=== PATIENT | female | born 1955 | race African-American/Black ===

== ENCOUNTER 2021-02-21 12:01 | Emergency (ER) | payer OTHER, SELFPAY ==
--- NOTE | ~2021-02-21 | XR_ITS ---
EXAMINATION: XR chest 2V DATE: 02/21/2021 12:28 INDICATION: Shortness of breath and dizziness TECHNIQUE: PA and lateral views of the chest are obtained. COMPARISON: None available FINDINGS: The lungs are free of acute opacities. There is no pleural effusion or pneumothorax. The ca rdiomediastinal silhouette is normal. There is moderate thoracic spondylosis. A single lead cardiac p acemaker is implanted in the left lateral chest wall. Its lead is present in the midline cutaneous ti ssues of the chest. IMPRESSION: 1. No acute cardiopulmonary abnormality. Reviewed, dictated and finalized at location A.
[2021-02-21 12:09] VITALS: BP 141/83; PULSE 80; RESP 18; TEMP 37.4; O2SAT 100
--- NOTE | 2021-02-21 12:13 | ECG_ITS ---
Measurements Intervals [place] Rate: 90 P: 35 NC: 155 QRS: -42 QRSD: 102 T: 90 QT: 360 QTc: 441 Interpretive Statements SINUS RHYTHM VENTRICULAR PREMATURE COMPLEX POSSIBLE LEFT ATRIAL ENLARGEMENT LEFT AXIS DEVIATION DELAYED PRECORDIAL R/S TRANSITION LEFT VENTRICULAR HYPERTROPHY WITH ST-T CHANGE BASELINE ARTIFACT- I, II, III, AVR, AVL ,AVF, V3, V5 BORDERLINE ECG Electronically Signed On 02-21-2021 13:00:02 CDT by Michael Madera D.O.
[2021-02-21 12:30] VITALS: BP 150/89; PULSE 92; RESP 20; O2SAT 100
[2021-02-21 12:34] VITALS: PULSE 92
[2021-02-21 12:34] LABS: Basophils Percent Auto 0.3 % (0.2-1.2); Eosinophils Percent Auto 0.5 % (0-4.4); Hematocrit 37.8 % (37.0-47.0); Hemoglobin 12.2 g/dL (12.0-15.0); Immature Granulocyte Absolute 0.02 K/mm3 (0.00-0.031); Immature Granulocyte Percent A 0.3 % (0-0.5); Lymphocytes Absolute Auto 2.58 K/mm3 (0.9-3.2); Mean Corpuscular HGB Conc 32.3 g/dl (32-36); Mean Corpuscular Hemoglobin 31.3 pg (26-34); Mean Corpuscular Volume 96.9 fl (80-100); Mean Platelet Volume 8.6 fl (7.4-10.4); Monocytes Absolute Auto 0.9 K/mm3 (0.1-0.6); Monocytes Percent Auto 11.7 % (2.6-8.5); Neutrophils Absolute Auto 3.9 K/mm3 (1.3-6.7); Neutrophils Percent Auto 52.2 % (45.5-73.1); Platelet Count Result 406 k/mm3 (150-375); Red Cell Distribution Width 14.7 % (11.5-14.5); White Blood Count 7.4 K/mm3 (4.5-10.0)
[2021-02-21 12:39] LABS: Anion Gap 10 mmol/L (8-16); Blood Urea Nitrogen 9 mg/dL (7-17); Calcium 9.6 mg/dL (8.4-10.2); Carbon Dioxide 30 mmol/L (22-30); Chloride 99 mmol/L (98-107); Estimated CRCL calculation 77 ml/min; Estimated Glomerular Filt Rate > 60; Glucose 87 mg/dL (65-105); Potassium 3.2 mmol/L (3.4-5.0); Sodium 139 mmol/L (137-145)
--- NOTE | 2021-02-21 13:15 | PC.NURSE ---
I attempted to call phone number listed in pt's chart to speak with family ([phone]), went to VM
--- NOTE | 2021-02-21 13:20 | PC.NURSE ---
1303 I stepped into the room to bring pt a commode as she requested to use the bathroom and she could not walk well. Pt sitting up on cart, shouting I can't hardly breathe and pulling off monitor. Sats remained 98% on RA 1310 Dr Joy called to bedside to assess pt, states she can go AMA, she is alert and oriented . Pt has been making multiple phone calls and refused to let me speak with family. Pt getting increasing agitated and loud, stating this room is doing something to me and I can't hardly breathe 1315 Pt ambulated slow steady gait out into hallway and out ambulance bay, tachypneic shallow breaths, refused to sign AMA papers, witnessed by Alba LIN and Dr. Joy
[2021-02-21 13:25] VITALS: O2SAT 98
--- NOTE | 2021-02-21 13:37 | ED.GENADULT ---
HPI - General Adult General Chief complaint: Shortness of Breath/Dyspnea Stated complaint: SOB Time Seen by Provider: 02/21/21 13:05 Source: patient History of Present Illness HPI narrative: Patient is 65 y/o female complaining of SOB. However, shortly after interviewed started. Patient states that she does not want to be evaluated and she wants leave. She refuses to answer any further questions regarding her condition and just wants to leave. Related Data Allergies Allergy/AdvReac Type Severity Reaction Status Date / Time No Known Allergies Allergy Verified 02/21/21 12:35 Review of Systems Review of Systems: ROS unobtainable: Yes other (patient refuses further questions) Course Reevaluation(s) Reevaluation #1: Patient refuses to be examined. She states that she want to leave. She called her family. I informed patient that her evaluation is not complete and the cause her symptoms have not been determined. I advised patient to want for her test results and possibly other tests. She refuses. She is awake, alert and competent. She left AMA. Date: 02/21/21 Vital Signs Vital signs: Vital Signs Temperature 37.4 C 02/21/21 12:09 Pulse Rate 80 02/21/21 12:09 Respiratory Rate 18 02/21/21 12:09 Blood Pressure 141/83 H 02/21/21 12:09 Pulse Oximetry 100 02/21/21 12:09 Temperature 37.4 C 02/21/21 12:09 Pulse Rate 92 02/21/21 12:34 Respiratory Rate 20 02/21/21 12:30 Blood Pressure 150/89 H 02/21/21 12:30 Pulse Oximetry 98 02/21/21 13:25 Medical Decision Making Vital Signs Vital Signs: Vital Signs Temperature 37.4 C 02/21/21 12:09 Pulse Rate 80 02/21/21 12:09 Respiratory Rate 18 02/21/21 12:09 Blood Pressure 141/83 H 02/21/21 12:09 Pulse Oximetry 100 02/21/21 12:09 Temperature 37.4 C 02/21/21 12:09 Pulse Rate 92 02/21/21 12:34 Respiratory Rate 20 02/21/21 12:30 Blood Pressure 150/89 H 02/21/21 12:30 Pulse Oximetry 98 02/21/21 13:25 Lab Data Result diagrams: 02/21/21 12:21 02/21/21 12:21 Labs: Lab Results 02/21/21 02/21/21 Range/Units 12:21 12:21 WBC 7.4 (4.5-10.0) K/mm3 RBC 3.90 L (4.2-5.4) M/mm3 Hgb 12.2 (12.0-15.0) g/dL Hct 37.8 (37.0-47.0) % MCV 96.9 (80-100) fl MCH 31.3 (26-34) pg MCHC 32.3 (32-36) g/dl RDW 14.7 H (11.5-14.5) % Plt Count 406 H (150-375) k/mm3 MPV 8.6 (7.4-10.4) fl Immature Gran % (Auto) 0.3 (0-0.5) % Neut % (Auto) 52.2 (45.5-73.1) % Lymph % (Auto) 35.0 (18.3-44.2) % Pettis % (Auto) 11.7 H (2.6-8.5) % Eos % (Auto) 0.5 (0-4.4) % Baso % (Auto) 0.3 (0.2-1.2) % Lymph # (Auto) 2.58 (0.9-3.2) K/mm3 Pettis # (Auto) 0.9 H (0.1-0.6) K/mm3 Eos # (Auto) 0.0 (0-0.3) K/mm3 Baso # (Auto) 0.0 (0.0-0.1) K/mm3 Abs Immat Gran (auto) 0.02 (0.00-0.031) K/mm3 Absolute Neuts (auto) 3.9 (1.3-6.7) K/mm3 Absolute Nucleated RBC 0.0 (0.0-0.012) K/mm3 Nucleated RBC % 0.0 (0.0-0.2) % Sodium 139 (137-145) mmol/L Potassium 3.2 L (3.4-5.0) mmol/L Chloride 99 (98-107) mmol/L Carbon Dioxide 30 (22-30) mmol/L Anion Gap 10 (8-16) mmol/L BUN 9 (7-17) mg/dL Creatinine 0.60 L (0.7-1.0) mg/dL Estim Creat Clear Calc 77 ml/min Estimated GFR > 60 (59 - ) Glucose 87 (65-105) mg/dL Calcium 9.6 (8.4-10.2) mg/dL Discharge Plan Discharge Clinical Impression: Shortness of breath Patient Disposition: Left Against Medical Advice Condition: Stable Follow-up/Referrals: PHYSICIAN NOT ON STAFF,NONSTAFF [Primary Care Provider] -
== END 2021-02-21 13:59 | disposition left against medical advice (07) ==
LOC: ANHED 13:29
PROVIDERS: Emergency Medicine; Emergency Provider Emergency Medicine
DX: R06.02 Shortness of breath (principal); I49.3 Ventricular premature depolarization; R94.31 Abnormal electrocardiogram [ECG] [EKG]
CPT/HCPCS: 36415; 71046; 80048; 85025; 93005; 99284